=== PATIENT | male | born 1975 | race Caucasian/White ===

== ENCOUNTER 2016-04-18 18:07 | Emergency (ER) | payer OTHER ==
[2016-04-18 20:27] LABS: HEMOGLOBIN 15.7 gm/dl (14.0-17.5); RED BLOOD COUNT 5.12 M/UL (4.20-5.50)
[2016-04-18 20:48] LABS: BUN/CREATININE RATIO 20 (0-10)
== END 2016-04-18 22:20 | disposition left against medical advice (07) ==
LOC: ER1 18:07
PROVIDERS: Emergency Medicine
DX: R07.9 Chest pain, unspecified (principal); F17.200 Nicotine dependence, unspecified, uncomplicated; Z79.4 Long term (current) use of insulin; Z79.84 Long term (current) use of oral hypoglycemic drugs; Z79.82 Long term (current) use of aspirin
CPT/HCPCS: 36415; 71010; 80053; 82550; 82553; 83690; 83874; 84484; 85025; 85610; 85730; 93005; 96374; 99285; C9113